=== PATIENT | female | born 1990 | race Caucasian/White ===

== ENCOUNTER 2016-12-08 12:28 | Emergency (ER) ==
[2016-12-08 12:37] VITALS: BP 101/61
[2016-12-08] MEDS ORDERED: TORADOL IM ONE (12:46)
[2016-12-08] MEDS ORDERED: COMPAZINE PO ONE (12:46)
[2016-12-08] MEDS ORDERED: SODIUM CHLORIDE 0.9% INJ ONE (12:46)
[2016-12-08] MEDS ORDERED: PHENERGAN IV ONE (12:46)
--- NOTE | 2016-12-08 12:47 | PROVIDER DOCUMENTATION ---
HPI-Headache <Dimple Paredes - Last Filed: 12/08/16 12:46> - General Source: patient - History of Present Illness-Headache Headache Location: reports: occipital Quality of Pain: reports: dull Severity: reports: mild Onset/Duration: reports: gradual, other (2 months) Timing: reports: still present, intermittent Headache Context: reports: nothing Headache History: reports: occasional headaches Any recent trauma/injury?: reports: none Headache severity at the maximum: moderate Headache Exacerbated by:: denies: light Modifying Factors: improves with: other (worse with light) Associated Symptoms: reports: headache, nausea, other (photophobia). denies: fainting, dizziness, neck/back pain, fever/chills, vomiting Similar Symptoms Previously?: Yes Recently seen or treated by another doctor?: No <Dimitri Chamberlain - Last Filed: 12/08/16 12:54> - General Chief Complaint: Headache Stated Complaint: HEADACHE Time Seen by Provider: 12/08/16 12:41 Allergies/Adverse Reactions: Patient Allergies Allergy/AdvReac Type Severity Reaction Status Date / Time morphine Allergy Severe ANAPHYLAXIS Verified 12/01/15 22:01 Home Medications: Promethazine [Phenergan] 25 mg PO 12/08/16 - History of Present Illness-Headache Nature of Presenting Problem: Patient is a 26 y/o F that presents with headache x 2 months. headache begins posterior and radiates frontally. She reports photophobia and nausea. takes motrin at night and helps with headache. (Dimitri Chamberlain) Review of Systems - Adult - REVIEW OF SYSTEMS - ADULT Constitutional: denies: see HPI, fever Eyes: denies: double vision, redness Ears, Nose, Mouth & Throat: denies: ear pain, sinus problem, mouth swelling, throat pain Cardiovascular: denies: chest pain, palpitations, syncope Respiratory: denies: cough, shortness of breath, wheezing Gastrointestinal: reports: nausea. denies: abdominal pain, diarrhea, vomiting Genitourinary: reports: no symptoms reported Musculoskeletal: denies: back pain, joint pain, neck pain Integumentary: reports: no symptoms reported Neurological: reports: headache/migraines. denies: dizziness/vertigo, seizure Psychiatric: reports: no symptoms reported Endocrine: reports: no symptoms reported Hematologic/Lymphatic: reports: no symptoms reported Allergic/Immunologic: reports: no symptoms reported All Other Systems: Reviewed and Negative <Dimitri Chamberlain - Last Filed: 12/08/16 12:54> Past History - Adult - PAST MEDICAL HISTORY-ADULT Major Childhood Illnesses: reports: denies history Cardiovascular: reports: denies history Respiratory: reports: denies history Gastrointestinal: reports: denies history Obstetrical/Gynecological: reports: denies history Genitourinary: reports: denies history Musculoskeletal: reports: denies history Neurological: reports: headaches/migraines (chronic headaches after epidural) Endocrine/Immune: reports: denies history Other Conditions: reports: denies history - PRIOR SURGERIES/PROCEDURES Surgical/Procedure History: reports: other (nose) - PRIOR HOSPITALIZATIONS Prior Hospitalizations: reports: none - IMMUNIZATION STATUS Childhood Immunizations: See Nurse Assessment Flu Vaccine: See Nurse Assessment - FAMILY HISTORY Family History: reviewed, not pertinent <Dimple Paredes - Last Filed: 12/08/16 12:46> - PAST MEDICAL HISTORY-ADULT Review of Records: reports: Nursing Assessment Review, Medications Reviewed Neurological: reports: headaches/migraines - PRIOR SURGERIES/PROCEDURES Surgical/Procedure History: reports: reviewed, not pertinent - IMMUNIZATION STATUS Childhood Immunizations: See Nurse Assessment Flu Vaccine: See Nurse Assessment - FAMILY HISTORY Family History: reviewed, not pertinent - SOCIAL HISTORY Smoking: non-smoker Living Situation: family <Dimitir Chamberlain - Last Filed: 12/08/16 12:54> Physical Exam- Neurological - Physical Exam-Neuro Initial Vital Signs Reviewed: Yes General Appearance: alert, no apparent distress Eye Exam: bilateral eye: normal inspection, PERRL, EOMI HENMT: normocephalic/atraumatic, moist mucous membranes, normal ENT inspection Head Injury: no evidence of injury. 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 negative: EOM palsy, motor weakness, sensory deficit Integumentary: normal color, normal turgor, warm/dry Psych/Mental Status: normal mood/affect, normal thought content, normal thought process, oriented x 3 - Glascow Coma Scale Best Eye Response: (4) open spontaneously Best Verbal Response: (5) oriented Best Motor Response: (6) obeys commands Total Glascow Score: 15 <Dimitri Chamberlain - Last Filed: 12/08/16 12:54> Progress <Dimple Paredes - Last Filed: 12/08/16 12:46> <Dimitri Chamberlain - Last Filed: 12/08/16 12:54> - PLAN OF CARE/RESULTS Progress/Plan/Lab Results: Vital Signs Temp Pulse Resp BP Pulse Ox 12/08/16 12:34 98 F 118 H 18 101/61 97 morphine Allergy (Severe, Verified 12/01/15 22:01) ANAPHYLAXIS "constriction of airway" Ketorolac [Toradol] 10 mg PO Q6H PRN PRN #20 tablet 12/08/16 Promethazine [Phenergan] 25 mg PO 12/08/16 Orders Category Date Time Status Ketorolac [Toradol] Med 12/08/16 12:46 Discontinued 30 mg IM NOW ONE Prochlorperazine [Compazine] Med 12/08/16 12:46 Discontinued 10 mg PO NOW ONE Promethazine [Phenergan] Med 12/08/16 12:46 Discontinued 25 mg IV NOW ONE Sodium Chloride 0.9% Med 12/08/16 12:46 Discontinued 10 ml INJ NOW ONE pt will be d/c home f/u with pcp, pt given rx, pt was clinically and neurologically stable. (Dimitri Chamberlain) Departure - Departure Time of Disposition Order: 12:46 Certified Medical Emergency: Emergent <Dimple Paredes - Last Filed: 12/08/16 12:46> <Dimitri Chamberlain - Last Filed: 12/08/16 12:54> - Departure DIAGNOSIS: Migraine Qualifiers: Migraine type: without aura Status migrainosus presence: without status migrainosus Intractability: not intractable Qualified Code(s): G43.009 - Migraine without aura, not intractable, without status migrainosus Disposition: HOME 01 Condition: Stable Additional Instructions: Follow up with Dr. Gomez ED Follow Up Instructions: You have been treated by a care provider in the Emergency Department. These instructions are being provided to you so you can have an understanding of how to care for yourself upon discharge. Upon discharge from the Emergency Department, you are responsible for making arrangements for follow-up care by a physician of your choice. Take all prescribed medications as directed. Return to the Emergency Department immediately for any new or worsening symptoms. You may call the Physician Referral phone number at [phone] to obtain a list of Physicians who are taking new patients. Prescriptions: Ketorolac [Toradol] 10 mg PO Q6H PRN PRN #20 tablet PRN Reason: Pain Referrals: None,PCP [Primary Care Provider] - Jonathan Gomez III, MD [STAFF PHYSICIAN] - Attestation - Scribe Verification/Attestation Scribe:: Dimitri Chamberlain Acting as Scribe for:: Dimple Paredes Scribe documention review:: This chart was documented by a scribe and accurately reflects the service the provider performed and the decisions made by the provider. - Physician/ Mid-level Attestation Patient care was provided by Mid-level provider (NURSING HOME ADMISSIONS DIRECTOR/PA):: Yes Mid-level provider:: Dimple Paredes Mid-level documentation review:: The Mid-level provider documentation, treatment plan and medical decision making was reviewed by the physician who agrees with all treatment and medical decision making by the MLP. <Dimitri Chamberlain - Last Filed: 12/08/16 12:54> Physician Attestation
== END 2016-12-08 14:08 | disposition home or self-care (01) ==
LOC: P.ED 12:28
DX: G43.009 Migraine without aura, not intractable, without status migrainosus (principal); R51 Headache; R11.0 Nausea; Z79.899 Other long term (current) drug therapy
CPT/HCPCS: 96372; J1885; J2550; S0183